=== PATIENT | male | born 1950 | race Hispanic/Latino ===

== ENCOUNTER 2018-11-06 11:54 | Outpatient (CLI) | payer OTHER, MEDICARE | END 2018-11-06 11:55 | disposition home or self-care (01) | LOC: LAB 11:54 ==

== ENCOUNTER 2018-11-07 07:17 | Outpatient (CLI) | payer OTHER, MEDICARE | END 2018-11-07 07:18 | disposition home or self-care (01) | LOC: RAD 07:17 ==